=== PATIENT | male | born 1935 | race Caucasian/White ===

== ENCOUNTER 2018-09-05 15:43 | Emergency (ER) | payer MEDICARE ==
[2018-09-05 16:04] VITALS: TEMP 98.9
[2018-09-05 16:06] VITALS: BMI 26.7
[2018-09-05] MEDS ORDERED: Morphine 4 mg/ml ISec IVP STA (16:43)
[2018-09-05] MEDS ORDERED: Iohexol 240 (50 ml) ONE (17:05)
[2018-09-05 17:06] LABS: BASO # 0.01 K/mm3 (0.0-2.0); BASO % 0.2 % (0.0-3.0); EOS # 0.2 (0.0-0.7); EOS % 3.3 % (1.5-5.0); HEMOGLOBIN 13.2 g/dL (14.0-18.0); LYMPH # 1.5 (1.2-3.4); LYMPH % 23.1 % (22.0-35.0); MEAN CELL VOLUME 98.3 fl (80.0-105.0); MEAN CORPUSCULAR HEMOGLOBIN 32.1 pg (25.0-35.0); MEAN CORPUSCULAR HGB CONC 32.7 g/dl (31.0-37.0); MEAN PLATELET VOLUME 11.4 fl (7.0-11.0); MONO # 0.6 (0.1-0.6); MONO % 9.4 % (1.0-6.0); RBC 4.11 10^6/uL (3.5-6.1); RED CELL DISTRIBUTION WIDTH 13.5 % (11.5-14.5); WHITE BLOOD COUNT 6.4 10^3/uL (4.5-11.0)
[2018-09-05 17:10] LABS: ALB/GLOB RATIO 1.4 (1.1-1.8); ALBUMIN 4.3 g/dL (3.0-4.8); ALT/SGPT 44 U/L (7-56); AST/SGOT 47 U/L (17-59); BLOOD UREA NITROGEN 14 mg/dL (7-21); CALCIUM 9.6 mg/dL (8.4-10.5); GFR NON-AFRICAN AMERICAN > 60; INR 1.21; LIPASE 242 U/L (23-300); PARTIAL THROMBOPLASTIN TIME 33.7 Seconds (26.9-38.3); PROTHROMBIN TIME 13.4 SECONDS (9.4-12.5)
[2018-09-05 17:14] LABS: VENOUS BLOOD GAS BASE EXCESS 2.5 mmol/L (0.0-2.0); VENOUS BLOOD GAS PO2 26 mm/Hg (30-55); VENOUS BLOOD PH 7.38 (7.32-7.43)
--- NOTE | 2018-09-05 17:14 | ED PDOC ---
Arrival/HPI - General Chief Complaint: Abdominal Pain Time Seen by Provider: 09/05/18 15:48 Historian: Patient - History of Present Illness Narrative History of Present Illness (Text): 09/05/18 15:48 Patient is an 82 year old male, with a past medical history of gastritis, hypertension, hyperlipidemia, and prostate surgery, who presents to the emergency department complaining of strangulated inguinal hernia. Patient states hernia came out last night and was unable to push it back in. Pt is normally able to push hernia back in place. Patient denies fall, trauma, fever, chills, chest pain, shortness of breath, nausea, vomiting, diarrhea, constipation, dysuria, hematuria, back pain, neck pain, or any other complaints. Time/Duration: Other (last night) Symptom Onset: Sudden Symptom Course: Unchanged Activities at Onset: Light Context: Home Past Medical History - Provider Review Nursing Documentation Reviewed: Yes - Infectious Disease Hx of Infectious Diseases: None - Tetanus Immunization Tetanus Immunization: Unknown - Cardiac Hx ME: Yes Hx Pacemaker: No - Neurological Hx Paralysis: No - Hematological/Oncological Hx Blood Transfusions: Yes Hx Blood Transfusion Reaction: No - Musculoskeletal/Rheumatological Hx Musculoskeletal Disorders: Yes - Psychiatric Hx Emotional Abuse: No Hx Physical Abuse: No Hx Substance Use: No - Surgical History Hx Open Heart Surgery: Yes - Anesthesia Hx Anesthesia Reactions: No Hx Malignant Hyperthermia: No - Suicidal Assessment Feels Threatened In Home Enviroment: No Family/Social History - Physician Review Nursing Documentation Reviewed: Yes Family/Social History: Unknown Family HX Smoking Status: Never Smoked Hx Alcohol Use: No Hx Substance Use: No Hx Substance Use Treatment: No Allergies/Home Meds Allergies/Adverse Reactions: Allergies No Known Allergies Allergy (Verified 12/25/17 10:25) Home Medications: Home Meds Medication Instructions Recorded Confirmed Tamsulosin [Flomax] 0.4 mg PO DAILY 08/05/12 12/25/17 Losartan [Cozaar] 100 mg PO DAILY 02/05/14 12/25/17 Atorvastatin Calcium [Lipitor] 10 mg PO DAILY 02/15/14 12/25/17 Aspirin [Ecotrin] 81 mg PO Q72H 12/25/17 12/25/17 Review of Systems - Physician Review All systems were reviewed & negative as marked: Yes - Review of Systems Constitutional: absent: Fevers, Other Respiratory: absent: SOB Cardiovascular: absent: Chest Pain Gastrointestinal: Other (strangulated inguinal hernia). absent: Diarrhea, Nausea, Vomiting Genitourinary Male: absent: Dysuria, Hematuria Musculoskeletal: absent: Back Pain Physical Exam Vital Signs Reviewed: Yes Vital Signs Temp Pulse Resp BP Pulse Ox 09/05/18 16:03 98.9 F 93 H 18 185/87 H 99 Temperature: Afebrile Blood Pressure: Hypertensive Pulse: Regular Respiratory Rate: Normal Appearance: Positive for: Well-Appearing, Non-Toxic, Comfortable Pain Distress: None Mental Status: Positive for: Alert and Oriented X 3 - Systems Exam Head: Present: Atraumatic, Normocephalic Pupils: Present: PERRL Extroacular Muscles: Present: EOMI Conjunctiva: Present: Normal Mouth: Present: Moist Mucous Membranes Neck: Present: Normal Range of Motion Respiratory/Chest: Present: Clear to Auscultation, Good Air Exchange. No: R espiratory Distress, Accessory Muscle Use Cardiovascular: Present: Regular Rate and Rhythm, Normal S1, S2. No: Murmurs Abdomen: Present: Normal Bowel Sounds, Hernias (right sided suprapubic stangulated hernia). No: Tenderness, Distention, Peritoneal Signs, Rebound, Guarding Back: Present: Normal Inspection Upper Extremity: Present: Normal Inspection. No: Cyanosis, Edema Lower Extremity: Present: Normal Inspection. No: Edema Neurological: Present: GCS=15, CN II-XII Intact, Speech Normal Skin: Present: Warm, Dry, Normal Color. No: Rashes Psychiatric: Present: Alert, Oriented x 3, Normal Insight, Normal Concentration Medical Decision Making ED Course and Treatment: 09/05/18 15:48 Impression: Pt is an 82 year old male, with a past medical history of hypertension, hyperlipidemia, gastritis, and prostate surgery, who presents to the emergency department complaining of strangulated inguinal hernia. Plan: -- CT A/P w/ PO and IV Contrast -- Labs -- Morphine -- Reassess and disposition Prior Visits: Notes and results from previous visits were reviewed. Progress Notes: 09/05/18 15:50 Reduced pt's inguinal hernia; patient tolerated procedure well with no complications. Patient denies any other complaints. Sign out to Dr Oakley at [address] abd/pelvis. - Lab Interpretations Lab Results: PT 13.4 SECONDS (9.4-12.5) H 09/05/18 16:30 INR 1.21 09/05/18 16:30 APTT 33.7 Seconds (26.9-38.3) 09/05/18 16:30 Total Bilirubin 0.7 mg/dL (0.2-1.3) 09/05/18 16:30 AST 47 U/L (17-59) 09/05/18 16:30 ALT 44 U/L (7-56) 09/05/18 16:30 Alkaline Phosphatase 101 U/L (38-126) 09/05/18 16:30 Total Protein 7.4 g/dL (5.8-8.3) 09/05/18 16:30 Albumin 4.3 g/dL (3.0-4.8) 09/05/18 16:30 Globulin 3.1 gm/dL 09/05/18 16:30 Albumin/Globulin Ratio 1.4 (1.1-1.8) 09/05/18 16:30 Lipase 242 U/L (23-300) 09/05/18 16:30 - RAD Interpretation Radiology Orders: 09/05/18 16:43 ABD PELVIS PO & IV CONTRAST [CT] Stat - Medication Orders Current Medication Orders: Discontinued Medications Morphine Sulfate (Morphine) 4 mg IVP STAT STA Stop: 09/05/18 16:44 Last Admin: 09/05/18 16:57 Dose: 4 mg MAR Pain Assessment Document 09/05/18 16:57 MA (Rec: 09/05/18 16:58 [id number] Pain Reassessment Is this a pain reassessment? Yes Sleep Is patient sleeping during reassessment? No Presence of Pain Presence of Pain Yes Pain Scale Used Protocol: PSCALES Pain Scale Used Numeric Location Left, Right or Bilateral Right Upper or Lower Lower Pain Location Body Site Groin Description Description Constant Intensity of Pain at present 9 Pain Behavior Rubbing Site Facial Grimacing Aggravating Factors Changing Position IVP Administration Document 09/05/18 16:57 MA (Rec: 09/05/18 16:58 [id number] Charges for Administration # of IVP Administrations 1 - Scribe Statement The provider has reviewed the documentation as recorded by the Scribe Anders Guerra All medical record entries made by the Scribe were at my direction and personally dictated by me. I have reviewed the chart and agree that the record accurately reflects my personal performance of the history, physical exam, medical decision making, and the department course for this patient. I have also personally directed, reviewed, and agree with the discharge instructions and disposition. Disposition/Present on Arrival - Present on Arrival Any Indicators Present on Arrival: No History of DVT/PE: No History of Uncontrolled Diabetes: No Urinary Catheter: No History of Decub. Ulcer: No History Surgical Site Infection Following: None - Disposition Have Diagnosis and Disposition been Completed?: Yes Diagnosis: Inguinal hernia, Abdominal pain Disposition Time: 19:00 Patient Plan: Discharge Condition: GOOD Referrals: Chelsey Null MD [Primary Care Provider] - Follow up with primary Forms: [employer] (Croatian)
[2018-09-05] MEDS ORDERED: Iohexol 350 MG/100 ML VIAL ONE (18:16)
--- NOTE | 2018-09-05 19:37 | ED PDOC ---
Physical Exam Vital Signs Reviewed: Yes Vital Signs Temp Pulse Resp BP Pulse Ox 09/05/18 16:03 98.9 F 93 H 18 185/87 H 99 Temperature: Afebrile Blood Pressure: Hypertensive Pulse: Regular Respiratory Rate: Normal Appearance: Positive for: Well-Appearing, Non-Toxic, Comfortable Pain Distress: None Mental Status: Positive for: Alert and Oriented X 3 Medical Decision Making ED Course and Treatment: 09/05/18 19:36 Patient signed out to me by Dr. Brunner, pending CT A/P. 09/05/18 21:09 case discussed with surgical lead, will come to ED bedside evaluation 09/05/18 21:42 patient seen and examined by surgical lead, hernia was further reduced. it turns out the patient was previously scheduled for hernia repair with dr. coffey. patient has no significant pain at this time and is stable for dc for outpt management. - Lab Interpretations Lab Results: pO2 26 mm/Hg (30-55) L 09/05/18 17:00 VBG pH 7.38 (7.32-7.43) 09/05/18 17:00 VBG pCO2 48.0 (40-60) 09/05/18 17:00 VBG HCO3 28.4 mmol/l (21-28) H 09/05/18 17:00 VBG Total CO2 29.9 mmol.L (22-28) H 09/05/18 17:00 VBG O2 Sat (Calc) 47.9 % (40-65) 09/05/18 17:00 VBG Base Excess 2.5 mmol/L (0.0-2.0) H 09/05/18 17:00 VBG Potassium 3.6 mmol/L (3.6-5.2) 09/05/18 17:00 Sodium 138.0 mmol/L (132-148) 09/05/18 17:00 Chloride 104.0 mmol/L (98-107) 09/05/18 17:00 Glucose 98 mg/dl (75-110) 09/05/18 17:00 Lactate 1.1 mmol/L (0.7-2.1) 09/05/18 17:00 FiO2 21.0 % 09/05/18 17:00 PT 13.4 SECONDS (9.4-12.5) H 09/05/18 16:30 INR 1.21 09/05/18 16:30 APTT 33.7 Seconds (26.9-38.3) 09/05/18 16:30 Total Bilirubin 0.7 mg/dL (0.2-1.3) 09/05/18 16:30 AST 47 U/L (17-59) 09/05/18 16:30 ALT 44 U/L (7-56) 09/05/18 16:30 Alkaline Phosphatase 101 U/L (38-126) 09/05/18 16:30 Total Protein 7.4 g/dL (5.8-8.3) 09/05/18 16:30 Albumin 4.3 g/dL (3.0-4.8) 09/05/18 16:30 Globulin 3.1 gm/dL 09/05/18 16:30 Albumin/Globulin Ratio 1.4 (1.1-1.8) 09/05/18 16:30 Lipase 242 U/L (23-300) 09/05/18 16:30 - RAD Interpretation Narrative RAD Interpretations (Text): 09/05/2018 20:40 Abd/Pelvis CT IMPRESSION: 1. A [id number] right inguinal hernia is present which contains a segment of rectosigmoid colon. 2. Evidence of regional enteritis involving the small intestine in the left lower quadrant. 3. 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 Dictator: Anders No M.D. Radiology Orders: 09/05/18 16:43 ABD PELVIS PO & IV CONTRAST [CT] Stat - Medication Orders Current Medication Orders: Discontinued Medications Morphine Sulfate (Morphine) 4 mg IVP STAT STA Stop: 09/05/18 16:44 Last Admin: 09/05/18 16:57 Dose: 4 mg [facility] Pain Assessment Document 09/05/18 16:57 MA (Rec: 09/05/18 16:58 [id number]) Pain Reassessment Is this a pain reassessment? Yes Sleep Is patient sleeping during reassessment? No Presence of Pain Presence of Pain Yes Pain Scale Used Protocol: PSCALES Pain Scale Used Numeric Location Left, Right or Bilateral Right Upper or Lower Lower Pain Location Body Site Groin Description Description Constant Intensity of Pain at present 9 Pain Behavior Rubbing Site Facial Grimacing Aggravating Factors Changing Position IVP Administration Document 09/05/18 16:57 MA (Rec: 09/05/18 16:58 [facility] Charges for Administration # of IVP Administrations 1 Re-Assess: ZAIRA Pain Assessment Document 09/05/18 17:57 MA (Rec: 09/05/18 18:31 [facility] Pain Reassessment Is this a pain reassessment? Yes Sleep Is patient sleeping during reassessment? No Presence of Pain Presence of Pain Yes Pain Scale Used Protocol: PSCALES Pain Scale Used Numeric Location Left, Right or Bilateral Right Pain Location Body Site Abdomen Description Description Constant Intensity of Pain at present 3 Pain Behavior Grasping Site Rubbing Site Aggravating Factors Changing Position Alleviating Factors/Management Medication Techniques - Scribe Statement The provider has reviewed the documentation as recorded by the Scribe Anders Guerra All medical record entries made by the Scribe were at my direction and personally dictated by me. I have reviewed the chart and agree that the record accurately reflects my personal performance of the history, physical exam, medical decision making, and the department course for this patient. I have also personally directed, reviewed, and agree with the discharge instructions and disposition. Disposition/Present on Arrival - Present on Arrival Any Indicators Present on Arrival: No History of DVT/PE: No History of Uncontrolled Diabetes: No Urinary Catheter: No History of Decub. Ulcer: No History Surgical Site Infection Following: None - Disposition Have Diagnosis and Disposition been Completed?: Yes Diagnosis: Inguinal hernia Disposition: HOME/ ROUTINE Disposition Time: 21:43 Patient Plan: Discharge Patient Problems: Current Active Problems Problem Status Onset Inguinal hernia Acute Abdominal pain Acute Condition: IMPROVED Discharge Instructions (ExitCare): Inguinal and Femoral (Groin) Hernias Print Language: TAIWANESE Referrals: Chelsey Null MD [Primary Care Provider] - Follow up with primary Rashard Dixon MD [Medical Doctor] - Follow up with primary Forms: [employer] (Nepali)
[2018-09-05 20:27] VITALS: BP 178/85; PULSE 83; RESP 16; O2SAT 98
--- NOTE | 2018-09-05 22:12 | CP.PCM.CON ---
History of Present Illness - History of Present Illness History of Present Illness: General Surgery: Dr Dixon PT is a 82M with PMH of HTN, HLD, BPH. Pt presents to emergency room with LLQ pain. Noted to have large inguinal hernia. Was initially reduced by ED attending and then pt was sent for CT scan, still noted to have rectosigmoid colon contained within hernia. At time of examination, pt has no complaints. States his pain has resolved. He reports to me he only presented to ED due to worsening pain, and that he had no obstructive symptoms. Pt reports he has never been obstructed and generally the hernia has always reduced with light pressure. After review of the EMR it was noted pt was scheduled for robotic hernia repair in 12/2017. Pt reports he did not present for his surgery because [place] But now he is back and would like the hernia repaired. Initially, I placed an icepack on the pts hernia for his comfort levels. I placed him supine with his knees bent and allowed him to rest. After approximately 10 mins Iplaced him in the trendelenburg position and the remained of his hernia freely reduced without difficulty. It was noted that his defect was significantly large, and bowel was likely to protrude again, but his risk of incarceration and strangulation were lower given size of defect and involved large bowel as opposed to small bowel. After much discussion of the pros and cons of open vs laparoscopic repair, pt agreed that an elective robotic hernia repair would be in best interested as opposed to an open emergent repair, especially considering his presentation was not emergent at this time. Discussion with surgical attending and ER physician, we concluded pt was safe for discharge and will follow up with Dr Dixon next week to schedule a repair. Review of Systems - Constitutional Constitutional: absent: Anorexia, Chills, Fever, Weakness - Cardiovascular Cardiovascular: absent: Chest Pain - Respiratory Respiratory: absent: Cough, Dyspnea Past Patient History - Infectious Disease Hx of Infectious Diseases: None - Tetanus Immunizations Tetanus Immunization: Unknown - Past Social History Smoking Status: Never Smoked - CARDIAC Hx Heart Attack: Yes Hx Pacemaker: No - NEUROLOGICAL Hx Paralysis: No - HEMATOLOGICAL/ONCOLOGICAL Hx Blood Transfusions: Yes Hx Blood Transfusion Reaction: No - MUSCULOSKELETAL/RHEUMATOLOGICAL Hx Musculoskeletal Disorders: Yes - PSYCHIATRIC Hx Emotional Abuse: No Hx Physical Abuse: No Hx Substance Use: No - SURGICAL HISTORY Hx Open Heart Surgery: Yes - ANESTHESIA Hx Anesthesia Reactions: No Hx Malignant Hyperthermia: No Meds Allergies/Adverse Reactions: Allergies Allergy/AdvReac Type Severity Reaction Status Date / Time No Known Allergies Allergy Verified 12/25/17 10:25 Physical Exam - Constitutional Appears: Non-toxic, No Acute Distress - Head Exam Head Exam: NORMAL INSPECTION - Eye Exam Eye Exam: Normal appearance - ENT Exam ENT Exam: Mucous Membranes Moist - Respiratory Exam Respiratory Exam: absent: Respiratory Distress - Cardiovascular Exam Cardiovascular Exam: REGULAR RHYTHM. absent: Tachycardia - GI/Abdominal Exam GI & Abdominal Exam: Hernia (right inguinal hernia - reducible), Soft. absent: Distended, Firm, Tenderness - Rectal Exam Rectal Exam: absent: Deferred Results - Vital Signs Recent Vital Signs: Last Vital Signs Temp 98.9 F 09/05/18 16:03 Pulse 83 09/05/18 21:54 Resp 16 09/05/18 21:54 BP 178/85 H 09/05/18 21:54 Pulse Ox 98 09/05/18 21:54 - Labs Result Diagrams: 09/05/18 16:30 09/05/18 16:30 Labs: Laboratory Results - last 24 hr 09/05/18 09/05/18 09/05/18 16:30 16:30 16:30 WBC 6.4 RBC 4.11 Hgb 13.2 L Hct 40.4 L MCV 98.3 MCH 32.1 MCHC 32.7 RDW 13.5 Plt Count 245 MPV 11.4 H Neut % (Auto) 64.0 Lymph % (Auto) 23.1 [place] % (Auto) 9.4 H Eos % (Auto) 3.3 Baso % (Auto) 0.2 Lymph # (Auto) 1.5 [place] # (Auto) 0.6 Eos # (Auto) 0.2 Baso # (Auto) 0.01 Absolute Neuts (auto) 4.11 PT 13.4 H INR 1.21 APTT 33.7 pO2 VBG pH VBG pCO2 VBG HCO3 VBG Total CO2 VBG O2 Sat (Calc) VBG Base Excess VBG Potassium Glucose Lactate FiO2 Sodium 143 Potassium 4.1 Chloride 104 Carbon Dioxide 27 Anion Gap 16 BUN 14 Creatinine 1.0 Est GFR ( Amer) > 60 Est GFR (Non-Af Amer) > 60 Random Glucose 101 Calcium 9.6 Total Bilirubin 0.7 AST 47 ALT 44 Alkaline Phosphatase 101 Total Protein 7.4 Albumin 4.3 Globulin 3.1 Albumin/Globulin Ratio 1.4 Lipase 242 Venous Blood Potassium 09/05/18 17:00 WBC RBC Hgb Hct MCV MCH MCHC RDW Plt Count MPV Neut % (Auto) Lymph % (Auto) [place] % (Auto) Eos % (Auto) Baso % (Auto) Lymph # (Auto) [place] # (Auto) Eos # (Auto) Baso # (Auto) Absolute Neuts (auto) PT INR APTT pO2 26 L VBG pH 7.38 VBG pCO2 48.0 VBG HCO3 28.4 H VBG Total CO2 29.9 H VBG O2 Sat (Calc) 47.9 VBG Base Excess 2.5 H VBG Potassium 3.6 Glucose 98 Lactate 1.1 FiO2 21.0 Sodium 138.0 Potassium Chloride 104.0 Carbon Dioxide Anion Gap BUN Creatinine Est GFR ( Amer) Est GFR (Non-Af Amer) Random Glucose Calcium Total Bilirubin AST ALT Alkaline Phosphatase Total Protein Albumin Globulin Albumin/Globulin Ratio Lipase Venous Blood Potassium 3.6 Assessment & Plan - Assessment and Plan (Free Text) Assessment: 82M with right reducible inguinal hernia containing rectosigmoid colon and possibly bladder Plan: hernia reduced at bedside asymptomatic at this time ok for discharge please have pt follow up in clinic with Dr Dixon to schedule elective robotic repair this case has been d/w Dr Destiny Smith, PGY4
--- NOTE | 2018-09-06 13:45 | CT ---
Date of service: 09/05/2018 PROCEDURE: CT Abdomen and Pelvis with contrast HISTORY: r/o strangulated hernia COMPARISON: None. TECHNIQUE: Contrast dose: 100 cc of Omni 350 Radiation dose: Total exam DLP = 1049.08 mGy-cm. This CT exam was performed using one or more of the following dose reduction techniques: Automated exposure control, adjustment of the mA and/or kV according to patient size, and/or use of iterative reconstruction technique. FINDINGS: LOWER THORAX: Unremarkable. LIVER: Unremarkable. No gross lesion or ductal dilatation. GALLBLADDER AND BILE DUCTS: Unremarkable. PANCREAS: Unremarkable. No gross lesion or ductal dilatation. SPLEEN: Unremarkable. ADRENALS: Unremarkable. No mass. KIDNEYS AND URETERS: Unremarkable. No hydronephrosis. No solid mass. Multiple renal cysts VASCULATURE: Unremarkable. No aortic aneurysm. Mild aortic calcifications BOWEL: There is a moderate size right inguinal hernia measuring 5.7 cm in diameter. This contains a segment of the rectosigmoid colon. There is no evidence of obstruction. APPENDIX: Normal appendix. PERITONEUM: Unremarkable. No free fluid. No free air. LYMPH NODES: Unremarkable. No enlarged lymph nodes. BLADDER: Unremarkable. REPRODUCTIVE: Unremarkable. BONES: No acute fracture. OTHER FINDINGS: The report concurs with the preliminary [facility] report IMPRESSION: There is a moderate size right inguinal hernia measuring 5.7 cm in diameter. This contains a segment of the rectosigmoid colon. There is no evidence of obstruction.
== END 2018-09-05 21:57 | disposition home or self-care (01) ==
LOC: ED 15:43
DX: K40.90 Unilateral inguinal hernia, without obstruction or gangrene, not specified as recurrent (principal); E78.5 Hyperlipidemia, unspecified; I10 Essential (primary) hypertension; I25.2 Old myocardial infarction; N40.0 Benign prostatic hyperplasia without lower urinary tract symptoms
CPT/HCPCS: 74177; 80053; 82803; 83690; 85025; 85610; 85730; 96374; 99283; J2270; Q9966; Q9967